=== PATIENT | male | born 1990 | race African-American/Black ===

== ENCOUNTER 2021-01-21 22:46 | Emergency (ER) | payer OTHER, SELFPAY ==
--- NOTE | ~2021-01-21 | XR_ITS ---
EXAMINATION: XR chest 1V portable 01/21/2021 23:55 INDICATION: Cough PROCEDURE: 2 view chest COMPARISON: 08/29/2004 FINDINGS: The lungs are clear. The cardiomediastinal silhouette is within normal limits. There are no pleural effusions. There is no pneumothorax suspected. IMPRESSION: 1: NO ACUTE CARDIOPULMONARY DISEASE. Reviewed, dictated and finalized at location A.
[2021-01-21 22:44] VITALS: BP 134/79; PULSE 101; RESP 18; TEMP 36.7; O2SAT 99
--- NOTE | 2021-01-22 00:53 | ED.GENADULT ---
HPI - General Adult General Chief complaint: Psychiatric Symptoms <Nick Leach MD - Last Filed: 01/22/21 06:52> Stated complaint: anger issues possible si <Nick Leach MD - Last Filed: 01/22/21 06:52> Time Seen by Provider: 01/21/21 23:16 <Nick Leach MD - Last Filed: 01/22/21 06:52> History of Present Illness HPI narrative: Patient with 30-year-old gentleman who presents the emergency department with chief complaint of anger issues and possible thoughts of harming himself. Patient reports that he is not been feeling him normal self lately and reports that is a little bit of a cough but reports that he is also been having problems with anger and has possibly been having thoughts of wanting to hurt himself and would like to talk to somebody. Patient states that he has not been running a fever denies vomiting or diarrhea patient was brought in by EMS after he was walking down the street trying to get to a homeless prison in [place] <Nick Leach MD - Last Filed: 01/22/21 06:52> Related Data Allergies/adverse reactions: Allergies Allergy/AdvReac Type Severity Reaction Status Date / Time No Known Allergies Allergy Verified 01/21/21 22:50 <Nick Leach MD - Last Filed: 01/22/21 06:52> Review of Systems Review of Systems: Narrative: A 10 system review of systems was completed on the patient and is negative except for what is stated in the HPI. Nursing and ancillary documentation was reviewed. <Nick Leach MD - Last Filed: 01/22/21 06:52> PMFSH Social History Social History: Social History Substance use type: does not use <Nick Leach MD - Last Filed: 01/22/21 06:52> Exam Narrative: Exam Narrative: GENERAL: Well-appearing, well-nourished, and in no acute distress. HEAD: Normocephalic, atraumatic. EYES: PERRLA and EOMI. ENT: Nares clear, no rhinorrhea or epistaxis. Mucous membranes moist. NECK: Supple. CHEST: Clear to auscultation. No respiratory distress. HEART: Regular rate and rhythm. No murmur heard. Normal peripheral pulses. ABDOMEN: Soft, nontender, nondistended, normal active bowel sounds. EXTREMITIES: Normal range of motion. No edema. SKIN: Warm, dry, no rash. NEURO: No focal deficits. Alert and oriented x3. PSYCH: Normal mood and affect. <Nick Leach MD - Last Filed: 01/22/21 06:52> Course Course Emergency Course: Patient is medically cleared for psychiatric evaluation <Nick Leach MD - Last Filed: 01/22/21 06:52> Reevaluation(s) Reevaluation #1: Accepted at [facility] by Dr. Barreto <Abdon Manriquez MD - Last Filed: 01/22/21 13:03> Date: 01/22/21 <Abdon Manriquez MD - Last Filed: 01/22/21 13:03> Time: 13:01 <Abdon Manriquez MD - Last Filed: 01/22/21 13:03> Vital Signs Vital signs: Vital Signs Temperature 98.0 F 01/21/21 22:44 Pulse Rate 101 H 01/21/21 22:44 Respiratory Rate 18 01/21/21 22:44 Blood Pressure 134/79 01/21/21 22:44 Pulse Oximetry 99 01/21/21 22:44 Temperature 98.3 F 01/22/21 07:22 Pulse Rate 82 01/22/21 10:42 Respiratory Rate 15 01/22/21 10:42 Blood Pressure 128/88 01/22/21 10:42 Pulse Oximetry 99 01/22/21 10:42 <Nick Leach MD - Last Filed: 01/22/21 06:52> Vital Signs Temperature 98.0 F 01/21/21 22:44 Pulse Rate 101 H 01/21/21 22:44 Respiratory Rate 18 01/21/21 22:44 Blood Pressure 134/79 01/21/21 22:44 Pulse Oximetry 99 01/21/21 22:44 Temperature 98.3 F 01/22/21 07:22 Pulse Rate 82 01/22/21 10:42 Respiratory Rate 15 01/22/21 10:42 Blood Pressure 128/88 01/22/21 10:42 Pulse Oximetry 99 01/22/21 10:42 <Abdon Manriquez MD - Last Filed: 01/22/21 13:03> Medical Decision Making Vital Signs Vital Signs: Vital Signs Temperature 9
[2021-01-22 01:10] LABS: Basophils Absolute Auto 0.1 K/mm3 (0.0-0.1); Basophils Percent Auto 0.7 % (0.2-1.2); Eosinophils Absolute Auto 0.3 K/mm3 (0-0.3); Eosinophils Percent Auto 3.4 % (0-4.4); Hemoglobin 14.3 g/dL (14.0-18.0); Immature Granulocyte Absolute 0.02 K/mm3 (0.00-0.031); Immature Granulocyte Percent A 0.3 % (0-0.5); Lymphocytes Absolute Auto 2.26 K/mm3 (0.9-3.2); Lymphocytes Percent Auto 29.5 % (18.3-44.2); Mean Corpuscular HGB Conc 31.8 g/dl (32-36); Mean Corpuscular Hemoglobin 26.9 pg (26-34); Mean Corpuscular Volume 84.7 fl (80-100); Monocytes Absolute Auto 0.9 K/mm3 (0.1-0.6); Monocytes Percent Auto 11.5 % (2.6-8.5); Neutrophils Absolute Auto 4.2 K/mm3 (1.3-6.7); Neutrophils Percent Auto 54.6 % (45.5-73.1); Platelet Count Result 264 k/mm3 (150-375); Red Blood Count 5.31 M/mm3 (4.6-6.20); Red Cell Distribution Width 12.9 % (11.5-14.5); White Blood Count 7.7 K/mm3 (4.5-10.0)
[2021-01-22 01:21] LABS: Acetaminophen < 10 ug/mL (10-30); Ethanol < 10 mg/dL (<10); Salicylate < 1.0 mg/dL (2-20)
[2021-01-22 01:22] LABS: Alanine Aminotransferase 12 U/L (4-50); Albumin Level 3.7 g/dL (3.5-5.1); Alkaline Phosphatase 79 U/L (38-126); Anion Gap 6 mmol/L (8-16); Aspartate Amino Transferase 21 U/L (17-59); Bilirubin,Total 0.4 mg/dL (0.2-1.3); Blood Urea Nitrogen 13 mg/dL (9-20); Calcium 8.8 mg/dL (8.4-10.2); Carbon Dioxide 30 mmol/L (22-30); Chloride 100 mmol/L (98-107); Estimated CRCL calculation 101 ml/min; Estimated Glomerular Filt Rate > 60; Glucose 98 mg/dL (75-110); Potassium 3.7 mmol/L (3.4-5.0); Sodium 136 mmol/L (137-145)
[2021-01-22 01:52] LABS: Thyroid Stimulating Hormone 0.889 uIU/mL (0.465-4.680)
--- NOTE | 2021-01-22 02:11 | PC.NURSE ---
voice mail left for crisis at 0211.
--- NOTE | 2021-01-22 02:11 | PC.NURSE ---
medically cleared by erp dr pike at this time.
--- NOTE | 2021-01-22 02:45 | PC.NURSE ---
rn left another voice mail for crisis at this time.
[2021-01-22 02:51] LABS: Add Urine Microscopic? YES; Appearance Urine Cloudy (Clear); Bilirubin Urine 2+ (Negative); Blood Urine Negative (Negative); Color Urine Amber (Yellow); Glucose Urine UA Negative (Negative); Ketones Urine Trace mg/dL (Negative); Leukocyte Esterase Ur Negative LEU/UL (Negative); Mucus Urine Heavy /lpf; Nitrate Urine Negative (Negative); Protein Urine 2+ mg/dL (Negative); WBC Urine 0-3 /hpf
[2021-01-22 02:55] LABS: Amphetamine Screen Urine Negative (Negative); Barbiturate Screen Urine Negative (Negative); Benzodiazepines Screen Urine Negative (Negative); Cannabinoid Screen Urine Positive (Negative); Cocaine Screen Urine Positive (Negative); Methadone Screen Urine Negative (Negative); Opiate Screen Urine Negative (Negative); Phencyclidine Screen Urine Negative (Negative)
[2021-01-22 03:09] LABS: Specific Grav Ur 1.043 (1.001-1.035)
--- NOTE | 2021-01-22 03:46 | PC.NURSE ---
charge nurse left another voice mail at this time. 3rd attempt, 3rd message.
--- NOTE | 2021-01-22 07:20 | PC.NURSE ---
ASSUMED CARE OF PT, PT IS ALERT AND UPRIGHT, SITTER AT BEDSIDE, VSS, BREAKFAST TRAY ORDERED FOR PT
[2021-01-22 07:22] VITALS: BP 126/82; PULSE 76; RESP 15; TEMP 36.8; O2SAT 98
[2021-01-22 08:05] LABS: EDCOVIDSCREEN Negative (Negative)
--- NOTE | 2021-01-22 08:43 | PC.NURSE ---
Spoke to intake at [facility], gave pt information, faxed records to [phone] per request. Pt speaking on phone w/ facility at this time.
--- NOTE | 2021-01-22 10:39 | PC.NURSE ---
Per Byron at [facility], they have accepted pt. He will go to BED 5328 A. There has not been an RN assigned to this pt as of yet, so they will not take report at this time. Will call to get report when a bed is assigned to a nurse. PH [phone]
[2021-01-22 10:42] VITALS: BP 128/88; PULSE 82; RESP 15; O2SAT 99
--- NOTE | 2021-01-22 15:50 | PC.NURSE ---
[facility] called back w/ nurse report for accepting bed due to pts psych doc at this facility. Requested this RN call report to [phone] for nurse to nurse report, when called was told to call back in 10 mins. telemarketer supervisor aware.
[2021-01-22 15:56] VITALS: BP 122/66; PULSE 78; RESP 15; O2SAT 98
--- NOTE | 2021-01-22 15:57 | PC.NURSE ---
dietary called and ordered dinner tray for pt
--- NOTE | 2021-01-22 16:11 | PC.NURSE ---
Report given to [place] spoke to [facility] RN, pt given room 220 bed 2. Pt notified. Called [facility] and notified as well. Spoke to Byron.
--- NOTE | 2021-01-22 18:18 | PC.NURSE ---
Addendum entered by Jennifer Tapia 01/22/21 20:23: 2020: CALLED [facility] FOR TRANSPORT STATUS... ETA 2029 Addendum entered by Jennifer Tapia 01/22/21 19:34: 1934: CALLED [facility] FOR TRANSPORT STATUS... ETA 1954 Addendum entered by Dorcas Allred 01/22/21 18:36: 1835: CALLED [facility] FOR TRANSPORT STATUS...ETA 1929 Original Note: 1614: CALLED [facility] TO TRANSPORT TO [facility]....ETA 1645 (TRIP #[id number]) 1705: CALLED [facility] FOR TRANSPORT STATUS...ETA 183 1718: CALLED [facility] AND [facility] TO TRANSPORT....BOTH DECLINED
== END 2021-01-22 20:33 ==
PROVIDERS: Emergency Medicine; Emergency Provider Emergency Medicine
DX: F32.9 Major depressive disorder, single episode, unspecified (principal); R45.851 Suicidal ideations; Z20.822 Contact with and (suspected) exposure to COVID-19
CPT/HCPCS: 36415; 71045; 80053; 80307; 81001; 84443; 85025; 87426; 99285; C9803

== ENCOUNTER 2021-04-04 15:39 | Emergency (ER) | payer OTHER, SELFPAY ==
[2021-04-04 15:46] VITALS: BP 136/72; PULSE 92; RESP 18; TEMP 36.4; O2SAT 97
== END 2021-04-05 04:45 | disposition left against medical advice (07) ==
LOC: ANHED 16:06
DX: Z53.21 Procedure and treatment not carried out due to patient leaving prior to being seen by health care provider (principal)
CPT/HCPCS: 99199

== ENCOUNTER 2021-04-26 12:20 | Emergency (ER) | payer OTHER, SELFPAY ==
--- NOTE | ~2021-04-26 | XR_ITS ---
XR chest 1V portable DATE: 04/26/2021 21:44 INDICATION: Generalized chest pain TECHNIQUE: Portable upright AP chest on 05/06/2021 at 2142 hours COMPARISON: 01/21/2021 portable AP chest FINDINGS: Normal heart size. No hilar or mediastinal enlargement. No pulmonary vascular congestion or pleural effusion, pulmonary infiltrate or consolidation. IMPRESSION: No active cardiopulmonary disease Reviewed, dictated and finalized at location A.
[2021-04-26 12:43] VITALS: BP 133/71; PULSE 79; RESP 18; TEMP 36.9; O2SAT 100
--- NOTE | 2021-04-26 14:31 | ECG_ITS ---
Measurements Intervals [place] Rate: 79 P: 59 ME: 147 QRS: 48 QRSD: 93 T: -5 QT: 345 QTc: 398 Interpretive Statements SINUS RHYTHM MINIMAL Q WAVES- ANTEROLAT/HIGH LAT LEADS NONSPECIFIC ST & T-WAVE ABNORMALITY- INFERIOR LEADS BORDERLINE ECG Electronically Signed On 04-26-2021 15:06:57 CDT by Michael Melgar D.O.
--- NOTE | 2021-04-26 14:32 | PC.NURSE ---
I did not do the EKG on this pt.
--- NOTE | 2021-04-26 15:36 | ED.CHESTPAIN ---
HPI - Chest Pain General Chief Complaint: Psychiatric Symptoms <Criselda Kelly PA-C - Last Filed: 04/26/21 23:43> Stated Complaint: homeless, wants meds for schizophrenia <ESTER Cheung Last Filed: 04/26/21 23:43> Time Seen by Provider: 04/26/21 15:17 <ESTER Cheugn Last Filed: 04/26/21 23:43> Source: patient <ESTER Cheung Last Filed: 04/26/21 23:43> Mode of arrival: ambulatory <ESTER Cheung Last Filed: 04/26/21 23:43> Limitations: no limitations <ESTER Cheung Last Filed: 04/26/21 23:43> History of Present Illness HPI narrative: This is a 30 year old male that presents to the ER for chest pain. Reportedly had initially presented to the police department to obtain medications for his schizophrenia. He then told them he had chest pain, so was sent to the ER for further evaluation. Reports the pain is a constant dull ache since last night. Reports he has been out of his medications for schizophrenia for months. He has been having hallucinations and seems to be currently responding to internal stimuli. He is unsure of the month or year. He also reports he is suicidal and thought about hanging himself. Denies shortness of breath, cough, or vomiting. <ESTER Cheung Last Filed: 04/26/21 23:43> Related Data Allergies/Adverse Reactions: Allergies Allergy/AdvReac Type Severity Reaction Status Date / Time No Known Allergies Allergy Verified 01/21/21 22:50 <ESTER Cheung Last Filed: 04/26/21 23:43> Review of Systems Review of Systems: CONSTITUTIONAL: Denies fever CARDIOVASCULAR: Denies chest pain. Denies edema. RESPIRATORY: Denies cough or dyspnea. GASTROINTESTINAL: Denies abdominal pain, nausea, vomiting PSYCHIATRIC: Reports depression <ESTER Cheung Last Filed: 04/26/21 23:43> All systems reviewed & are unremarkable except as noted in HPI and below <ESTER Cheung Last Filed: 04/26/21 23:43> [facility] Past Medical History Medical History: Medical History (Updated 04/28/21 @ 00:00 by Annabella Baugh) History of schizophrenia <Criselda Kelly PA-C - Last Filed: 04/26/21 23:43> Social History Social History: Social History Substance use type: unknown <ESTER Cheung Last Filed: 04/26/21 23:43> Exam Narrative: GENERAL: Well-appearing, obese, and in no acute distress. HEAD: Normocephalic, atraumatic. EYES: PERRLA and EOMI. ENT: Nares clear, no rhinorrhea or epistaxis. Mucous membranes moist. Oropharynx without tonsillar hypertrophy exudate or other lesions. Bilateral TMs pearly garza non-bulging NECK: Supple. No adenopathy or masses. CHEST: Clear to auscultation. No respiratory distress. No wheezes rales or rhonchi HEART: Regular rate and rhythm. No murmur heard. Normal peripheral pulses. ABDOMEN: Soft, nontender, nondistended, normal active bowel sounds. EXTREMITIES: Normal range of motion. No edema. SKIN: Warm, dry, no rash. NEURO: No focal deficits. Alert and oriented x3. PSYCH: Normal mood and affect <Criselda Kelly PA-C - Last Filed: 04/26/21 23:43> Course Course Emergency Course: 19:00 Patient is medically cleared for evaluation by crisis <ESTER Cheung Last Filed: 04/26/21 23:43> Consultations Consultation #1: Patient evaluated by crisis. Will be voluntarily admitted for further evaluation and treatment <ESTER Cheung Last Filed: 04/26/21 23:43> Date: 04/26/21 <ESTER Cheung Last Filed: 04/26/21 23:43> Time: 22:28 <ESTER Cheung Last Filed: 04/26/21 23:43> Vital Signs Vital signs: Vital Signs Temperature 36.9 C 04/26/21 12:43 Pulse Rate 79 04/26/21 12:43 Respiratory Rate 18 04/26/21 12:43 Blood Pressure 133/71 04/26/21 12:43 Pulse Oximetry 100 04/26/21 12:43 Temperature 36.9 C 04/26/21 12:
[2021-04-26 15:51] LABS: Basophils Absolute Auto 0.1 K/mm3 (0.0-0.1); Basophils Percent Auto 0.6 % (0.2-1.2); Eosinophils Absolute Auto 0.2 K/mm3 (0-0.3); Eosinophils Percent Auto 2.1 % (0-4.4); Hematocrit 49.5 % (42.0-52.0); Hemoglobin 15.9 g/dL (14.0-18.0); Immature Granulocyte Absolute 0.02 K/mm3 (0.00-0.031); Immature Granulocyte Percent A 0.2 % (0-0.5); Lymphocytes Absolute Auto 2.37 K/mm3 (0.9-3.2); Lymphocytes Percent Auto 28.7 % (18.3-44.2); Mean Corpuscular HGB Conc 32.1 g/dl (32-36); Mean Corpuscular Hemoglobin 28.2 pg (26-34); Mean Corpuscular Volume 87.9 fl (80-100); Mean Platelet Volume 9.8 fl (7.4-10.4); Monocytes Absolute Auto 0.8 K/mm3 (0.1-0.6); Monocytes Percent Auto 9.1 % (2.6-8.5); Neutrophils Absolute Auto 4.9 K/mm3 (1.3-6.7); Neutrophils Percent Auto 59.3 % (45.5-73.1); Platelet Count Result 281 k/mm3 (150-375); Red Blood Count 5.63 M/mm3 (4.6-6.20); Red Cell Distribution Width 14.5 % (11.5-14.5); White Blood Count 8.3 K/mm3 (4.5-10.0)
[2021-04-26 15:58] VITALS: BP 113/98; PULSE 78; RESP 18; O2SAT 100
[2021-04-26 16:01] LABS: Alanine Aminotransferase 17 U/L (4-50); Albumin Level 4.3 g/dL (3.5-5.1); Alkaline Phosphatase 91 U/L (38-126); Anion Gap 7 mmol/L (8-16); Aspartate Amino Transferase 29 U/L (17-59); Bilirubin,Total 0.9 mg/dL (0.2-1.3); Blood Urea Nitrogen 13 mg/dL (9-20); Calcium 9.2 mg/dL (8.4-10.2); Carbon Dioxide 29 mmol/L (22-30); Chloride 103 mmol/L (98-107); Estimated CRCL calculation 124 ml/min; Estimated Glomerular Filt Rate > 60; Glucose 83 mg/dL (65-110); Lipase 39 U/L (23-300); Potassium 4.1 mmol/L (3.4-5.0); Sodium 139 mmol/L (137-145)
[2021-04-26 16:07] LABS: Prothrombin Time 12.8 Seconds (11.1-14.7)
[2021-04-26 16:08] LABS: Partial Thromboplastin Time 29.2 SECONDS (22.3-36.8)
[2021-04-26] MEDS: IBUPROFEN 600 MG TABLET PO (16:14)
[2021-04-26 16:38] LABS: Thyroid Stimulating Hormone 0.669 uIU/mL (0.465-4.680)
[2021-04-26 16:56] LABS: Ethanol < 10 mg/dL (<10)
[2021-04-26 17:16] LABS: Troponin I < 0.012 ng/mL (0.000-0.034)
[2021-04-26 17:37] LABS: Add Urine Microscopic? YES; Appearance Urine Clear (Clear); Bilirubin Urine 1+ (Negative); Blood Urine Negative (Negative); Color Urine Amber (Yellow); Glucose Urine UA Negative (Negative); Ketones Urine 2+ mg/dL (Negative); Leukocyte Esterase Ur Negative LEU/UL (Negative); Mucus Urine Heavy /lpf; Nitrate Urine Negative (Negative); Protein Urine 1+ mg/dL (Negative); RBC Urine 0-2 /hpf (0-2); Squamous Epithelial Cell Urine Rare /hpf (Few); WBC Urine 0-3 /hpf
[2021-04-26 17:40] LABS: Specific Grav Ur 1.033 (1.001-1.035)
[2021-04-26 17:41] LABS: Amphetamine Screen Urine Negative (Negative); Barbiturate Screen Urine Negative (Negative); Benzodiazepines Screen Urine Negative (Negative); Cannabinoid Screen Urine Negative (Negative); Cocaine Screen Urine Negative (Negative); Methadone Screen Urine Negative (Negative); Opiate Screen Urine Negative (Negative); Phencyclidine Screen Urine Negative (Negative)
--- NOTE | 2021-04-26 18:55 | PC.NURSE ---
Per Ana from crisis, another person will come eval. this patient.
--- NOTE | 2021-04-26 19:53 | PC.NURSE ---
SEE NURSES NOTE.
--- NOTE | 2021-04-26 20:03 | PC.NURSE ---
Addendum entered by Claudette Ayoub RN 04/27/21 06:44: When asked about how he would strangle himself, pt states with a cord or something . Original Note: Pt resting in bed on this RN's arrival. Updated on plan to await crisis quality control assessor. Pt initially denies feeling suicidal, but when further questioned, reports he has thought about strangling myself for years . When asked why he hasn't attempted prior, pt states I just think about it. Pt has many pauses before answering questions, and says Ummm, ummm, ummm appears to be thinking. Reports last psych doctor was Dr. Cai at [facility] who he has not seen x 1 year. Homeless. Reports hearing voices, but very vague when asked what they say. Room 6 checked for safety. Sitter at bedside.
--- NOTE | 2021-04-26 23:00 | PC.NURSE ---
Per bushel worker, pt accepted at [facility] for voluntary admission pending covid test result.
--- NOTE | 2021-04-26 23:15 | PC.NURSE ---
Rapid Covid swab obtained for placement. sent to lab as ordered.
[2021-04-26 23:25] LABS: EDCOVIDSCREEN Negative (Negative)
[2021-04-27 00:43] VITALS: BP 122/65; PULSE 63; RESP 15; O2SAT 100
--- NOTE | 2021-04-27 01:06 | PC.NURSE ---
0056 Called [facility] to request transport. ETA 0400 0101 called [facility] to request transport declined [phone] called [facility] to request transport declined [address] [facility] to request transport declined. 0106 called [facility] to request transport. declined
--- NOTE | 2021-04-27 01:13 | PC.NURSE ---
Pt verbally consented to EMS transport. Cosigned by ED winchman/crane operator. sitter at bedside. Awaiting [facility], ETA 0400.
--- NOTE | 2021-04-27 02:18 | PC.NURSE ---
Pt resting on stretcher c eyes closed. resps even/nonlabored. no s/s of distress. awaiting [facility] arrival.
--- NOTE | 2021-04-27 02:18 | PC.NURSE ---
Chuy's sister - Shavon - phone number provided - [phone]
--- NOTE | 2021-04-27 04:00 | PC.NURSE ---
called [facility] for ETA update. eta [id number]
--- NOTE | 2021-04-27 04:01 | PC.NURSE ---
DEQUAN [facility] at [facility] updated on new EMS arrival time. Per uriel [facility] ETA 0700.
--- NOTE | 2021-04-27 06:45 | PC.NURSE ---
Sitter removed by charge nurse prior to EMS arrival. Pt to [facility].
--- NOTE | 2021-04-27 06:45 | PC.NURSE ---
[facility] here
--- NOTE | 2021-04-27 06:48 | PC.NURSE ---
[facility] here.
== END 2021-04-27 07:03 ==
PROVIDERS: Physician Assistant; Emergency Provider Emergency Medicine
DX: R45.851 Suicidal ideations (principal); F20.9 Schizophrenia, unspecified
CPT/HCPCS: 36415; 71045; 80053; 80307; 81001; 83690; 84443; 84484; 85025; 85610; 85730; 87426; 93005; 99285; A9270; C9803

== ENCOUNTER 2021-05-06 13:32 | Emergency (ER) | payer OTHER, SELFPAY ==
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
[2021-05-06 13:55] VITALS: BP 141/85; PULSE 90; RESP 16; TEMP 37.1; O2SAT 100
--- NOTE | 2021-05-06 14:02 | PC.NURSE ---
Outside walking around on sidewalk with a steady gait. No limp noted.
== END 2021-05-06 14:48 | disposition left against medical advice (07) ==
LOC: ANHED 15:24
PROVIDERS: PCP Internal Medicine Pulmonary Disease
DX: M79.672 Pain in left foot (principal)
CPT/HCPCS: 73630; 99199

== ENCOUNTER 2021-05-06 18:58 | Emergency (ER) | payer OTHER, SELFPAY ==
--- NOTE | ~2021-05-06 | XR_ITS ---
EXAMINATION: XR ankle LT min 3V DATE: 05/06/2021 20:03 INDICATION: Left ankle pain TECHNIQUE: Anteroposterior, lateral, mortise, and additional oblique view of the ankle were obtained. COMPARISON: None. FINDINGS: There is no fracture, dislocation, or subluxation. Ankle soft tissue swelling is present. T he joint spaces are normal. IMPRESSION: 1. No acute osseous abnormality. Reviewed, dictated and finalized at location A.
[2021-05-06 19:13] VITALS: BP 149/81; PULSE 89; RESP 18; TEMP 36.6; O2SAT 98
--- NOTE | 2021-05-06 19:51 | ED.GENADULT ---
HPI - General Adult General Chief complaint: Extremity Injury, Lower Stated complaint: foot pain Time Seen by Provider: 05/06/21 19:46 Source: patient, EMS and RN notes reviewed Mode of arrival: EMS Limitations: no limitations History of Present Illness HPI narrative: Patient is a 30-year-old male who presents with left ankle injury he is unsure as to how he may have injured it he notes pain around the ankle joint denies other injuries or complaints presents nondistressed per EMS Related Data Allergies Allergy/AdvReac Type Severity Reaction Status Date / Time No Known Allergies Allergy Verified 05/06/21 19:18 Review of Systems Review of Systems: All systems reviewed & are unremarkable except as noted in HPI and below PMFSH Past Medical History Medical History History of schizophrenia Social History Social History Substance use type: unknown Exam Narrative: GENERAL: Well-appearing, well-nourished, and in no acute distress. HEAD: Normocephalic, atraumatic. EYES: PERRLA and EOMI. ENT: Nares clear, no rhinorrhea or epistaxis. Mucous membranes moist. EXTREMITIES: Normal range of motion. No edema. Tenderness of the left ankle joint no deformities noted SKIN: Warm, dry, no rash. NEURO: No focal deficits. Alert and oriented x3. Neurovascularly intact. Capillary refill less than 2 seconds PSYCH: Normal mood and affect. Course Vital Signs Vital signs: Vital Signs Temperature 97.8 F 05/06/21 19:13 Pulse Rate 89 05/06/21 19:13 Respiratory Rate 18 05/06/21 19:13 Blood Pressure 149/81 H 05/06/21 19:13 Pulse Oximetry 98 05/06/21 19:13 Temperature 97.8 F 05/06/21 19:13 Pulse Rate 89 05/06/21 19:13 Respiratory Rate 18 05/06/21 19:13 Blood Pressure 149/81 H 05/06/21 19:13 Pulse Oximetry 98 05/06/21 19:13 Medical Decision Making MDM Narrative Medical decision making narrative: Patients injury or pain is consistent with musculoskeletal etiology. No signs of neurological or vascular compromise on exam. Compartments and tisues are soft without signs of compartment syndrome. Pain is felt appropriate for further evaluation on an outpatient basis. Vital Signs Vital Signs: Vital Signs Temperature 97.8 F 05/06/21 19:13 Pulse Rate 89 05/06/21 19:13 Respiratory Rate 18 05/06/21 19:13 Blood Pressure 149/81 H 05/06/21 19:13 Pulse Oximetry 98 05/06/21 19:13 Temperature 97.8 F 05/06/21 19:13 Pulse Rate 89 05/06/21 19:13 Respiratory Rate 18 05/06/21 19:13 Blood Pressure 149/81 H 05/06/21 19:13 Pulse Oximetry 98 05/06/21 19:13 Imaging Data Radiologist's impression: ITS Impressions Ankle X-Ray 05/06/21 20:06 IMPRESSION: 1. No acute osseous abnormality. Discharge Plan Discharge Clinical Impression: Ankle sprain and strain Patient Disposition: Home, Self-Care Condition: Stable Instructions: Antibiotic Form, Ankle Sprain (ED) Additional Instructions: Limited weight on the affected leg until able to bear weight without pain. Ice and elevate extremity. Pain medication as needed and directed. Follow up with your doctor for further care in the next 7 days. Return if symptoms worsen or concerns Follow-up/Referrals: Nohemi Cai MD [Primary Care Provider] -
== END 2021-05-06 20:25 | disposition home or self-care (01) ==
LOC: ANHED 20:16
PROVIDERS: Emergency Provider Emergency Medicine; PCP Internal Medicine Pulmonary Disease
DX: S93.402A Sprain of unspecified ligament of left ankle, initial encounter (principal); S96.912A Strain of unspecified muscle and tendon at ankle and foot level, left foot, initial encounter; X58.XXXA Exposure to other specified factors, initial encounter
CPT/HCPCS: 73610; 99283

== ENCOUNTER 2021-05-06 20:30 | Emergency (ER) | payer OTHER, SELFPAY ==
--- NOTE | 2021-05-06 20:42 | PC.NURSE ---
Pt called back for triage, did not respond to RN call at this time.
[2021-05-06 20:44] VITALS: BP 147/95; PULSE 93; RESP 16; TEMP 36.6; O2SAT 98
[2021-05-06 21:17] LABS: Basophils Absolute Auto 0.1 K/mm3 (0.0-0.1); Basophils Percent Auto 0.6 % (0.2-1.2); Eosinophils Absolute Auto 0.2 K/mm3 (0-0.3); Eosinophils Percent Auto 1.8 % (0-4.4); Hematocrit 47.8 % (42.0-52.0); Hemoglobin 15.6 g/dL (14.0-18.0); Immature Granulocyte Absolute 0.05 K/mm3 (0.00-0.031); Immature Granulocyte Percent A 0.4 % (0-0.5); Lymphocytes Absolute Auto 3.14 K/mm3 (0.9-3.2); Lymphocytes Percent Auto 27.6 % (18.3-44.2); Mean Corpuscular HGB Conc 32.6 g/dl (32-36); Mean Corpuscular Hemoglobin 28.3 pg (26-34); Mean Corpuscular Volume 86.8 fl (80-100); Mean Platelet Volume 9.5 fl (7.4-10.4); Monocytes Absolute Auto 0.9 K/mm3 (0.1-0.6); Monocytes Percent Auto 7.5 % (2.6-8.5); Neutrophils Absolute Auto 7.1 K/mm3 (1.3-6.7); Neutrophils Percent Auto 62.1 % (45.5-73.1); Platelet Count Result 322 k/mm3 (150-375); Red Blood Count 5.51 M/mm3 (4.6-6.20); Red Cell Distribution Width 13.9 % (11.5-14.5); White Blood Count 11.4 K/mm3 (4.5-10.0)
[2021-05-06 21:27] LABS: Ethanol 133 mg/dL (<10)
[2021-05-06 21:28] LABS: Alanine Aminotransferase 23 U/L (4-50); Albumin Level 4.2 g/dL (3.5-5.1); Alkaline Phosphatase 95 U/L (38-126); Anion Gap 12 mmol/L (8-16); Aspartate Amino Transferase 36 U/L (17-59); Bilirubin,Total 0.2 mg/dL (0.2-1.3); Blood Urea Nitrogen 10 mg/dL (9-20); Calcium 8.9 mg/dL (8.4-10.2); Carbon Dioxide 24 mmol/L (22-30); Chloride 107 mmol/L (98-107); Estimated CRCL calculation 124 ml/min; Estimated Glomerular Filt Rate > 60; Glucose 105 mg/dL (65-110); Potassium 3.5 mmol/L (3.4-5.0); Sodium 143 mmol/L (137-145)
--- NOTE | 2021-05-06 22:50 | ED.PSYCH ---
HPI - Psych General Chief Complaint: Psychiatric Symptoms Stated Complaint: i want to be seen for my schizophrenia Time Seen by Provider: 05/06/21 22:50 Source: patient Mode of arrival: ambulatory Limitations: other (Uncooperative and not answering question at times) History of Present Illness HPI Narrative: Patient is a 30-year-old male complaining of it is my schizophrenia , which he describes as having auditory visual hallucinations for the past few days. Patient denies any suicidal or homicidal ideations. Patient states that he has been compliant with his medications. Related Data Allergies Allergy/AdvReac Type Severity Reaction Status Date / Time No Known Allergies Allergy Verified 05/06/21 20:49 Review of Systems Review of Systems: All systems reviewed & are unremarkable except as noted in HPI and below Constitutional: Constitutional: Denies body ache(s), Denies chills, Denies excessive sweating, Denies fatigue, Denies fever(s), Denies headache(s), Denies lethargy, Denies malaise, Denies weakness and Denies weight loss Eyes: Eyes: Denies blurry vision, Denies change in vision and Denies loss of vision ENT: Denies dizziness, Denies ear discharge, Denies headache(s), Denies lip swelling, Denies epistaxis, Denies nasal congestion, Denies neck pain, Denies throat swelling and Denies tongue swelling Cardiovascular: Cardiovascular: Denies chest pain, Denies chest pain at rest, Denies chest pain with activity, Denies diaphoresis, Denies rapid heart rate, Denies edema, Denies irregular heart rhythm, Denies lightheadedness, Denies palpitations, Denies dyspnea and Denies dyspnea on exertion Respiratory: Respiratory: Denies chest congestion, Denies cough, Denies hemoptysis, Denies dyspnea and Denies dyspnea on exertion Gastrointestinal: Gastrointestinal: Denies abdominal pain, Denies melena, Denies hematochezia, Denies diarrhea, Denies nausea, Denies vomiting and Denies hematemesis Musculoskeletal: Musculoskeletal: Denies abnormal gait, Denies deformity, Denies joint swelling, Denies limited range of motion, Denies neck pain and Denies numbness Neurologic: Denies Abnormal speech present, Denies abnormal gait, Denies confusion, Denies dizziness, Denies headache(s), Denies focal weakness, Denies loss of vision, Denies numbness, Denies Other visual disturbances, Denies Sensory deficit (Neuro) and Denies weakness Psychiatric: Psychiatric: Denies confusion, Denies depression, Denies homicidal ideation and Denies suicidal ideation Endocrine: Endocrine: Denies cold intolerance, Denies excessive sweating, Denies fatigue, Denies heat intolerance and Denies palpitations Hematologic/Lymphatic: Hematologic/Lymphatic: Denies easy bleeding and Denies easy bruising Allergic/Immunologic: Allergic/Immunologic: Denies lip swelling, Denies throat swelling and Denies tongue swelling PMFSH Past Medical History Medical History History of schizophrenia Social History Social History Substance use type: unknown Comments Past medical history schizophrenia Family history: Unknown Social history: Positive for smoker, positive for EtOH use, denies any drug use Exam Const: General: cooperative, healthy appearing, comfortable, no acute distress, well developed, alert and awake; No confusion Orientation/consciousness: oriented to person, oriented to place, oriented to time, patient oriented x3 and No confusion Limitations: no limitations HENMT: Head: normal to inspection, normocephalic and atraumatic Ears: hearing grossly normal bilaterally, TM normal on the right and TM normal on the left General nose exam: Normal external nose present, Normal nares present and No nasal discharge present Face and sinus: normal facial exam Mouth: Yes Normal oral and palatal mucosa present, Yes lip normal, Yes tongue normal and Yes oropharynx normal Throat
[2021-05-06 23:00] VITALS: BP 140/91; PULSE 89; RESP 20; O2SAT 97
--- NOTE | 2021-05-07 00:45 | PC.NURSE ---
pt. medically cleared.
--- NOTE | 2021-05-07 01:30 | PC.NURSE ---
pt. attempted multiple times for urine bus has not produced a urine sample. per erp pt. is medically cleared.
[2021-05-07 02:53] VITALS: BP 128/83; PULSE 87; RESP 14; TEMP 36.4; O2SAT 97
--- NOTE | 2021-05-07 02:55 | PC.NURSE ---
pt. attempting to urinate.
--- NOTE | 2021-05-07 03:00 | PC.NURSE ---
crisis reports pt. is admitted to [facility] pending UDS and negative covid-19 test
[2021-05-07 03:25] LABS: Barbiturate Screen Urine Negative (Negative); Benzodiazepines Screen Urine Negative (Negative)
[2021-05-07 03:29] LABS: Amphetamine Screen Urine Negative (Negative); Cannabinoid Screen Urine Positive (Negative); Methadone Screen Urine Negative (Negative); Opiate Screen Urine Negative (Negative); Phencyclidine Screen Urine Negative (Negative)
[2021-05-07 03:54] LABS: EDCOVIDSCREEN Negative (Negative)
--- NOTE | 2021-05-07 04:27 | PC.NURSE ---
faxed paperwork and negative covid-19. to [facility]. updated [facility] intake on paperwork that has been faxed.
--- NOTE | 2021-05-07 04:44 | PC.NURSE ---
pt. intake from [facility] reports pt. is not admitted at this time but will be contacting RN in approx. ten minutes.
--- NOTE | 2021-05-07 06:10 | PC.NURSE ---
spoke w/ intake at [facility] and reports their physician will not accept the pt. due to low severity. physician reports that pt. is not a danger to anyone or himself. physician also reports he was recently tx. at psych facility by a board certified physician and should follow up out patient.
--- NOTE | 2021-05-07 07:25 | PC.NURSE ---
Called Crisis and spoke with Roxanne in regards to pt. Roxanne states that she will contact Sonia and have her call me.
--- NOTE | 2021-05-07 07:27 | PC.NURSE ---
Pt is sleeping at this time.
[2021-05-07 07:52] VITALS: BP 158/93; PULSE 81; RESP 18; TEMP 36.6; O2SAT 99
--- NOTE | 2021-05-07 07:52 | PC.NURSE ---
olivia ordered for pt.
--- NOTE | 2021-05-07 08:44 | PC.NURSE ---
Sonia from Crisis here to speak with pt
--- NOTE | 2021-05-07 09:03 | PC.NURSE ---
Pt out in hallway stating he needs to leave now I have someplace i need to be . Pt walked out of this ER
[2021-05-07 13:01] LABS: Cocaine Screen Urine Negative (Negative)
== END 2021-05-07 09:04 | disposition home or self-care (01) ==
PROVIDERS: Emergency Medicine; Emergency Provider Emergency Medicine; PCP Internal Medicine Pulmonary Disease
DX: F20.9 Schizophrenia, unspecified (principal); F17.200 Nicotine dependence, unspecified, uncomplicated
CPT/HCPCS: 36415; 80053; 80307; 84443; 85025; 87426; 99283; C9803